=== PATIENT | male | born 1950 | race Caucasian/White ===

== ENCOUNTER 2018-04-22 01:19 | Inpatient (IN) | payer MEDICARE, OTHER ==
[2018-04-22] MEDS ORDERED: ACETAMINOPHEN IV (For NPO) 1,000 MG in EMPTY BAG 1 BAG IVPB STA (01:45)
[2018-04-22] MEDS ORDERED: VANCOMYCIN 2,000 MG in SODIUM CHLORIDE 0.9% 250 ML IVPB STA (01:55)
--- NOTE | 2018-04-22 02:01 | ED ---
General Adult HPI - General Chief complaint: Altered Mental Status Stated complaint: Altered Mental Status Source: patient, family, EMS Mode of arrival: EMS Limitations: altered mental status - History of Present Illness Initial comments: Dictation was produced using [employer] dictation software. please excuse any grammatical, word or spelling errors. Chief Complaint: 67-year-old male past medical history of asthma, COPD , diabetes presents with worsening bilateral lower extremity pain and constitutional symptoms. History of Present Illness: She is 67-year-old male who was recently admitted for lower extremity cellulitis. He was on several days of vancomycin. Patient was at home today when he felt like his pain was getting worse. He notes that erythema of his bilateral feet have been also been getting worse. He localizes pain to bilateral feet. His symptoms on his left lower extremity is worse than his right. Patient states that he was admitted for cellulitis on vancomycin. He was admitted for 10 days and felt like his symptoms improved with the medication. Patient presents today with his . She reports that patient had brief episode of confusion and bizarre behavior that was short-lived. Patient denies any confusion at this time. states he is currently not confused. She states that he's been feeling cold however has not spiked any fevers. The ROS documented in this emergency department record has been reviewed and confirmed by me. Those systems with pertinent positive or negative responses have been documented in the HPI. All other systems are other negative and/or noncontributory. - Related Data Allergies Allergy/AdvReac Type Severity Reaction Status Date / Time antibiotics-unknown Allergy Rash/Hives Uncoded 04/22/18 01:28 Review of Systems ROS Statement: Those systems with pertinent positive or pertinent negative responses have been documented in the HPI. ROS Other: All systems not noted in ROS Statement are negative. Past Medical History Past Medical History: Asthma, COPD, Diabetes Mellitus, Hyperlipidemia, Hypertension, Thyroid Disorder History of Any Multi-Drug Resistant Organisms: None Reported Past Surgical History: Appendectomy, Orthopedic Surgery, Tonsillectomy Past Psychological History: No Psychological Hx Reported Smoking Status: Former smoker Past Alcohol Use History: None Reported Past Drug Use History: None Reported General Exam - General Exam Comments Initial Comments: PHYSICAL EXAM: General Impression: Alert and oriented x3, not in acute distress HEENT: Normocephalic atraumatic, extra-ocular movements intact, pupils equal and reactive to light bilaterally, mucous membranes moist. Cardiovascular: Heart regular rate and rhythm, S1&S2 audible, no murmurs, rubs or gallops Chest: Lungs clear to auscultation bilaterally, no rhonchi, no wheeze, no rales Abdomen: Bowel sounds present, abdomen soft, non-tender, non-distended, no organomegaly Musculoskeletal: Pulses present and equal in all extremities, no peripheral edema Motor: Power 5/5 bilaterally, no focal deficits noted Neurological: CN II-XII grossly intact, no focal motor or sensory deficits noted Skin: Intact with no visualized rashes Psych: Normal affect and mood Limitations: altered mental status Course Vital Signs 04/22/18 04/22/18 04/22/18 01:21 02:53 03:46 Temperature 99.3 F Pulse Rate 108 H 98 101 H Respiratory 19 19 20 Rate Blood Pressure 142/69 134/66 125/74 O2 Sat by Pulse 94 L 96 95 Oximetry Medical Decision Making - Medical Decision Making ED course: 67-year-old male multiple comorbidities presents with bilateral extremity symptoms. Clinical presentation is consistent with bilateral lower extremity cellulitis. Vital signs upon arrival shows temperature 99.3, heart rate 108.Laboratory evaluation obtained. No leukocytosis. CBC is unremarkable. Cardiac panel is negative. Cumbersome metabolic panel shows mild hyponatremia of 134. BUN is 21. Glucose is 103. Rest of labs are otherwise unremarkable. Computed tomography scan of the head was obtained showing no acute processes. Foot x-ray does not show any gas in the soft tissue. Radiology read showed MP joint osteoarthritis. No signs of osteomyelitis. Chest x-ray shows atelectasis. EKGs benign. Click or presentation is insistent with the lateral lower extremity cellulitis. At this point erythema surrounds more than just the MP joint. There is no clinical suspicion for gout given clinical presentation. Patient started on vancomycin. Pending urine studies. Blood cultures obtained. Patient be admitted. Patient not having any neck stiffness. Kernig's and Brudzinski's negative. No clinical suspicion for [employer] infection. While in the emergency department patient did have a couple episodes of bizarre speech I believe this dictation secondary to lower extremity cellulitis. EKG interpretation: Ventricular rate 108, sinus tachycardia, QRS 92, QTc 447. No NC prolongation, no QTC prolongation, no ST or T-wave changes noted. . Overall, this EKG is unremarkable - Lab Data Result diagrams: 04/22/18 02:25 04/22/18 02:25 Lab Results 04/22/18 04/22/18 04/22/18 Range/Units 02:25 02:25 02:25 WBC 10.2 (3.8-10.6) k/uL RBC 4.62 (4.30-5.90) m/uL Hgb 14.6 (13.0-17.5) gm/dL Hct 44.7 (39.0-53.0) % MCV 96.6 (80.0-100.0) fL MCH 31.6 (25.0-35.0) pg MCHC 32.7 (31.0-37.0) g/dL RDW 15.3 (11.5-15.5) % Plt Count 213 (150-450) k/uL Neutrophils % 77 % Lymphocytes % 11 % Monocytes % 8 % Eosinophils % 1 % Basophils % 0 % Neutrophils # 7.8 H (1.3-7.7) k/uL Lymphocytes # 1.1 (1.0-4.8) k/uL Monocytes # 0.8 (0-1.0) k/uL Eosinophils # 0.1 (0-0.7) k/uL Basophils # 0.0 (0-0.2) k/uL PT (9.0-12.0) sec INR (<1.2) APTT (22.0-30.0) sec Sodium 134 L (137-145) mmol/L Potassium 4.1 (3.5-5.1) mmol/L Chloride 96 L (98-107) mmol/L Carbon Dioxide 28 (22-30) mmol/L Anion Gap 10 mmol/L BUN 21 H (9-20) mg/dL Creatinine 1.00 (0.66-1.25) mg/dL Est GFR (CKD-EPI)AfAm 90 (>60 ml/min/1.73 sqM) Est GFR (CKD-EPI)NonAf 78 (>60 ml/min/1.73 sqM) Glucose 103 H (74-99) mg/dL Plasma Lactic Acid Jack 1.0 (0.7-2.0) mmol/L Calcium 8.5 (8.4-10.2) mg/dL Total Bilirubin 1.0 (0.2-1.3) mg/dL AST 15 L (17-59) U/L ALT 18 L (21-72) U/L Alkaline Phosphatase 80 (38-126) U/L Total Protein 5.9 L (6.3-8.2) g/dL Albumin 3.4 L (3.5-5.0) g/dL 04/22/18 Range/Units 02:25 WBC (3.8-10.6) k/uL RBC (4.30-5.90) m/uL Hgb (13.0-17.5) gm/dL Hct (39.0-53.0) % MCV (80.0-100.0) fL MCH (25.0-35.0) pg MCHC (31.0-37.0) g/dL RDW (11.5-15.5) % Plt Count (150-450) k/uL Neutrophils % % Lymphocytes % % Monocytes % % Eosinophils % % Basophils % % Neutrophils # (1.3-7.7) k/uL Lymphocytes # (1.0-4.8) k/uL Monocytes # (0-1.0) k/uL Eosinophils # (0-0.7) k/uL Basophils # (0-0.2) k/uL PT 10.1 (9.0-12.0) sec INR 1.0 (<1.2) APTT 24.6 (22.0-30.0) sec Sodium (137-145) mmol/L Potassium (3.5-5.1) mmol/L Chloride (98-107) mmol/L Carbon Dioxide (22-30) mmol/L Anion Gap mmol/L BUN (9-20) mg/dL Creatinine (0.66-1.25) mg/dL Est GFR (CKD-EPI)AfAm (>60 ml/min/1.73 sqM) Est GFR (CKD-EPI)NonAf (>60 ml/min/1.73 sqM) Glucose (74-99) mg/dL Plasma Lactic Acid Jack (0.7-2.0) mmol/L Calcium (8.4-10.2) mg/dL Total Bilirubin (0.2-1.3) mg/dL AST (17-59) U/L ALT (21-72) U/L Alkaline Phosphatase (38-126) U/L Total Protein (6.3-8.2) g/dL Albumin (3.5-5.0) g/dL Disposition Clinical Impression: Cellulitis Disposition: ADMITTED IP TO THIS HOSP Condition: Fair Referrals: Magali Almaraz MD [Primary Care Provider] - 1-2 days Decision Time: 05:03
[2018-04-22 02:37] LABS: Basophils % (A) 0 %; Eosinophils # (A) 0.1 k/uL (0-0.7); Eosinophils % (A) 1 %; HCT 44.7 % (39.0-53.0); HGB 14.6 gm/dL (13.0-17.5); Lymphocytes # (A) 1.1 k/uL (1.0-4.8); Lymphocytes % (A) 11 %; MCH 31.6 pg (25.0-35.0); MCHC 32.7 g/dL (31.0-37.0); MCV 96.6 fL (80.0-100.0); Mean Platelet Volume 7.1; Monocytes # (A) 0.8 k/uL (0-1.0); Monocytes % (A) 8 %; Neutrophils # (A) 7.8 k/uL (1.3-7.7); Neutrophils % (A) 77 %; Platelet Count 213 k/uL (150-450); RBC 4.62 m/uL (4.30-5.90); RDW 15.3 % (11.5-15.5); WBC 10.2 k/uL (3.8-10.6)
[2018-04-22] MEDS: SODIUM CHLORIDE 0.9% 500 ML 500 ML IV SCH ×2 (02:52→03:44)
[2018-04-22 02:53] LABS: Partial Thromboplastin Time 24.6 sec (22.0-30.0); Prothrombin Time 10.1 sec (9.0-12.0)
--- NOTE | 2018-04-22 03:29 | XR ---
EXAMINATION TYPE: XR chest 2V DATE OF EXAM: 04/22/2018 COMPARISON: NONE HISTORY: Fever TECHNIQUE: Frontal and lateral views of the chest are obtained. FINDINGS: Heart and mediastinum are normal. Lungs are clear of consolidation. There is suboptimal in spiration. There is elevated right diaphragm. There are chest leads. There is no heart failure. IMPRESSION: Poor inspiration. No heart failure or pulmonary consolidation. Subsegmental atelectasis at the lung bases.
--- NOTE | 2018-04-22 03:32 | XR ---
EXAMINATION TYPE: XR foot complete bilateral DATE OF EXAM: 04/22/2018 COMPARISON: NONE HISTORY: Bilateral foot pain and cellulitis TECHNIQUE: 3 views each foot FINDINGS: There is large left side plantar and Achilles calcaneal spur formation. There is fragmentat ion of the calcification at the left Achilles calcaneal spur. There is narrowing and spurring at the left first MP joint. There is similar narrowing and spurring at the first MP joint right foot. There is large Achilles dasia caneal spur of the right foot. The metatarsals are intact. There are is no subluxation. There is eros ion at the DIP joint of the second toe of the right foot. IMPRESSION: Significant Achilles calcaneal spur formation. Bilateral first MP joint osteoarthritis. T here are some cystic changes at the right first MP joint. Gouty arthritis should be considered at the first MP joint and also in the DIP joint of the second toe right foot. I do not see evidence of oste omyelitis.
--- NOTE | 2018-04-22 03:33 | CT ---
EXAMINATION TYPE: CT brain wo con DATE OF EXAM: 04/22/2018 COMPARISON: None HISTORY: AMS CT DLP: 1103.30 mGycm Automated exposure control for dose reduction was used. FINDINGS: There is some cerebral cortical atrophy. There is no mass effect nor midline shift. There is no sign of intracranial hemorrhage. The calvarium is intact. IMPRESSION: CEREBRAL ATROPHY. NO ACUTE INTRACRANIAL ABNORMALITY.
[2018-04-22 03:39] LABS: Albumin 3.4 g/dL (3.5-5.0); Calcium 8.5 mg/dL (8.4-10.2); Potassium 4.1 mmol/L (3.5-5.1); Total Protein 5.9 g/dL (6.3-8.2)
[2018-04-22] MEDS ORDERED: NALOXONE 0.4 MG/ML 1 ML VIAL IV PRN (04:59)
[2018-04-22 05:12] LABS: Appearance,Urine Clear (Clear); Bilirubin,Urine Negative (Negative); Blood,Urine Negative (Negative); Color,Urine Yellow; Glucose,Urine (UA) Negative (Negative); Ketones,Urine 1+ (Negative); Leukocyte Esterase,Urine Negative (Negative); Nitrite,Urine Negative (Negative); Protein,Urine Negative (Negative); Specific Gravity,Urine 1.011 (1.001-1.035); Urobilinogen,Urine <2.0 mg/dL (<2.0)
[2018-04-22 07:36] LABS: Glucose,Whole Blood 104 mg/dL (75-99)
[2018-04-22 08:09] VITALS: BMI 28.8
[2018-04-22] MEDS ORDERED: ALPRAZolam 1 MG TAB PO PRN (11:10)
[2018-04-22] MEDS ORDERED: LISINOPRIL-HCTZ 20-12.5 MG 1 EACH TAB PO SCH (11:30)
[2018-04-22 11:41] LABS: Glucose,Whole Blood 112 mg/dL (75-99)
[2018-04-22] MEDS ORDERED: Simvastatin [Zocor] 20 MG PO SCH (11:45)
[2018-04-22] MEDS ORDERED: VANCOMYCIN IV PER PHARMACY 1 EACH MISC MISCELLANE PRN (12:37)
[2018-04-22] MEDS ORDERED: VANCOMYCIN 1,750 MG in SODIUM CHLORIDE 0.9% 250 ML IVPB SCH (13:00)
[2018-04-22] MEDS: FUROSEMIDE 40 MG TAB PO SCH (13:37)
[2018-04-22] MEDS: LISINOPRIL-HCTZ 10-12.5 MG 1 EACH TAB PO SCH (13:37)
[2018-04-22] MEDS: metFORMIN 500 MG TAB PO SCH ×2 (13:37→21:46)
[2018-04-22] MEDS: VERAPAMIL SR 240 MG TABLET.ER PO SCH (13:38)
[2018-04-22] MEDS: LEVOTHYROXINE SODIUM 200 MCG PO SCH (13:40)
[2018-04-22] MEDS: ceFAZolin IN SWFI 2 GM/20 ML SYRINGE IVP SCH ×2 (13:40→21:53)
[2018-04-22] MEDS: INSULIN ASPART 100 UNIT/ML 1 ML 10 ML VIAL SQ SCH ×3 (13:40→21:50)
[2018-04-22] MEDS ORDERED: VANCOMYCIN 1,750 MG in SODIUM CHLORIDE 0.9% 500 ML 500 ML IVPB SCH (14:00)
[2018-04-22 15:06] LABS: Uric Acid 4.4 mg/dL (3.5-8.5)
[2018-04-22 15:19] LABS: C Reactive Protein 164.6 mg/L (<10.0)
[2018-04-22] MEDS: methylPREDNISolone SOD SUCCI 125 MG/2 ML VIAL IV SCH ×3 (16:21→23:28)
[2018-04-22] MEDS: COLCHICINE 0.6 MG EACH PO SCH ×2 (16:21→21:46)
[2018-04-22 16:57] LABS: Glucose,Whole Blood 106 mg/dL (75-99)
[2018-04-22] MEDS: HYDROmorphone 4 MG TABLET PO PRN ×2 (17:32→22:23)
--- NOTE | 2018-04-22 17:45 | HP ---
HISTORY AND PHYSICAL CHIEF COMPLAINTS: Pain and swelling of the right foot. HISTORY OF PRESENT ILLNESS: This 67-year-old gentleman with a past medical history of asthma, COPD, diabetes mellitus, hypertension, hyperlipidemia, hypothyroidism, hernia repair, being followed by Dr. Almaraz in the outpatient setting, recently had right leg cellulitis after falling in a ditch. The patient improved significantly, but patient had some kidney problems subsequently secondary to Bactrim. But currently the patient is noticing increased pain and swelling of the right leg and the patient also tripped on the left foot and also injured the left third toe. She was admitted for further evaluation and treatment. Broad-spectrum antibiotics were initiated. There is no history of fever, rigors or chills. No history of headache, loss of consciousness, seizures. PAST MEDICAL HISTORY: 1. Asthma. 2. COPD. 3. Diabetes mellitus. 4. Hypertension. 5. Hyperlipidemia. 6. Hypothyroidism. 7. Gout. 8. Recent cellulitis, as mentioned earlier. 9. Renal failure. MEDICATIONS: 1. Glucophage 500 mg p.o. b.i.d. 2. Zocor 20 mg at bedtime. 3. Singulair 10 mg p.o. daily. 4. Zestoretic 10/12.5 mg p.o. daily. 5. Synthroid 200 mcg p.o. daily. 6. Dilaudid 4 mg p.o. q.4 p.r.n. 7. Lasix 40 mg p.o. daily. 8. Pepcid 40 mg p.o. daily. 9. Cetirizine 10 mg p.o. daily. 10.Zyloprim 300 mg p.o. b.i.d. 11.Xanax 1 mg p.o. t.i.d. p.r.n. 12.Verapamil ER 240 mg p.o. daily. ALLERGIES: ANTIBIOTICS. FAMILY HISTORY: History of CHF, myocardial infarction, multiple DVTs. SOCIAL HISTORY: Previous history of smoking. No current smoking or alcohol intake. REVIEW OF SYSTEMS: ENT: No diminished hearing. No diminished vision. CARDIOVASCULAR SYSTEM: No angina, palpitations. RESPIRATORY SYSTEM: No cough, hemoptysis. GI: No nausea, vomiting. : No dysuria or retention. NERVOUS SYSTEM: No numbness, weakness. ALLERGY/IMMUNOLOGY: No asthma, hayfever. MUSCULOSKELETAL: As mentioned earlier. HEMATOLOGY/ONCOLOGY: As mentioned earlier. ENDOCRINE: As mentioned earlier. CONSTITUTIONAL: As mentioned earlier. DERMATOLOGY: As mentioned earlier. RHEUMATOLOGY: As mentioned earlier. PSYCHIATRY: Negative. PHYSICAL EXAMINATION: Patient is alert, oriented x3. Pulse is 95, blood pressure 130/66, respirations 16, temperature 99.2, pulse ox 97% on room air. HEENT: Conjunctivae normal. Oral mucosa moist. NECK: No jugular venous distention. No carotid bruit. No lymph node enlargement. CARDIOVASCULAR SYSTEM: S1, S2 muffled. RESPIRATORY SYSTEM: Breath sounds diminished at the bases. No rhonchi. No crackles. ABDOMEN: Soft, non-tender. No mass palpable. LEGS: Right leg tenderness and swelling in the ankle and metatarsophalangeal joints present. Otherwise, evidence of hematoma of the left third toe also present. Gouty tophi also present on the left second toe. NERVOUS SYSTEM: Higher functions as mentioned earlier. Moves all 4 limbs. No focal motor or sensory deficit. LYMPHATICS: No lymph node palpable in neck, axillae or groin. SKIN: No ulcer, rash, bleeding. LABS: CBC within normal limits. INR is 1. Sodium 134, potassium 4, glucose 104. AST and ALT are low. UA noted. ASSESSMENT: 1. Pain and swelling of the right leg, possible acute gout. 2. Rule out acute cellulitis. 3. Hyponatremia. 4. Injury to the left third toe. 5. History of chronic obstructive pulmonary disease. 6. Asthma. 7. History of recent right leg cellulitis. 8. History of recent renal failure, possibly drug-induced. 9. Diabetes mellitus 10.Hypertension. 11.Hyperlipidemia. 12.Hypothyroidism. 13.History of degenerative joint disease. 14.History of hernia repair. 15.Bilateral carpal tunnel repair. 16.Remote history of nicotine dependence. 17.FULL CODE. RECOMMENDATIONS AND DISCUSSION: In this 67-year-old gentleman who presented with multiple complex medical issues , at this time I recommend to continue current medications, continue with symptomatic treatment. We will initiate broad-spectrum IV antibiotics, obtain cultures. Will order ESR, CRP, as well as uric acid initially. Start colchicine and a trial of steroids empirically. Otherwise, continue to monitor. Prognosis guarded. Monitor blood sugars closely. Repeat labs. Resume the home medications. Repeat labs. Further recommendations to follow. A copy of this dictation is being forwarded to Dr. Almaraz, who is the primary physician. Prognosis is guarded. The patient understands and agrees. MMODL / IJN: [id number] / MTDD
[2018-04-22 17:49] LABS: Hemoglobin A1C 5.6 % (4.0-6.0)
[2018-04-22] MEDS ORDERED: diphenhydrAMINE 50 MG CAP PO PRN (19:59)
[2018-04-22 21:04] LABS: Glucose,Whole Blood 147 mg/dL (75-99)
[2018-04-22] MEDS: ALLOPURINOL 300 MG TAB PO SCH (21:46)
[2018-04-22] MEDS: Simvastatin [Zocor] 20 MG PO SCH (22:09)
[2018-04-23] MEDS: ceFAZolin IN SWFI 2 GM/20 ML SYRINGE IVP SCH ×3 (05:03→21:33)
[2018-04-23] MEDS: methylPREDNISolone SOD SUCCI 125 MG/2 ML VIAL IV SCH ×2 (05:06→13:06)
[2018-04-23] MEDS ORDERED: ARTIFICIAL TEARS-HYPROMELLOSE DROPS 15 ML BTL BOTH EYES PRN (05:11)
[2018-04-23] MEDS: LEVOTHYROXINE SODIUM 200 MCG PO SCH (05:12)
[2018-04-23 08:14] LABS: Glucose,Whole Blood 174 mg/dL (75-99)
[2018-04-23] MEDS: COLCHICINE 0.6 MG EACH PO SCH ×2 (08:18→21:34)
[2018-04-23] MEDS: metFORMIN 500 MG TAB PO SCH ×2 (08:19→21:34)
[2018-04-23] MEDS: LISINOPRIL-HCTZ 10-12.5 MG 1 EACH TAB PO SCH (08:19)
[2018-04-23] MEDS: LORATADINE 10 MG TAB PO SCH (08:19)
[2018-04-23] MEDS: FAMOTIDINE 20 MG TAB PO SCH (08:19)
[2018-04-23] MEDS: VERAPAMIL SR 240 MG TABLET.ER PO SCH (08:19)
[2018-04-23] MEDS: MONTELUKAST 10 MG TAB PO SCH (08:19)
[2018-04-23] MEDS: FUROSEMIDE 40 MG TAB PO SCH (08:19)
[2018-04-23] MEDS: ALLOPURINOL 300 MG TAB PO SCH ×2 (08:20→21:33)
[2018-04-23] MEDS: INSULIN ASPART 100 UNIT/ML 1 ML 10 ML VIAL SQ SCH ×4 (08:29→21:33)
[2018-04-23] MEDS ORDERED: CETIRIZINE HCL 10 MG PO SCH (09:00)
[2018-04-23 09:58] LABS: Basophils % (A) 0 %; Eosinophils % (A) 0 %; HCT 43.2 % (39.0-53.0); HGB 14.6 gm/dL (13.0-17.5); Lymphocytes # (A) 0.5 k/uL (1.0-4.8); Lymphocytes % (A) 7 %; MCH 32.7 pg (25.0-35.0); MCHC 33.7 g/dL (31.0-37.0); Mean Platelet Volume 7.1; Monocytes # (A) 0.2 k/uL (0-1.0); Monocytes % (A) 3 %; Neutrophils # (A) 6.1 k/uL (1.3-7.7); Neutrophils % (A) 89 %; Platelet Count 227 k/uL (150-450); RBC 4.45 m/uL (4.30-5.90); RDW 15.4 % (11.5-15.5); WBC 6.9 k/uL (3.8-10.6)
[2018-04-23 10:03] LABS: Anion Gap 12 mmol/L; Blood Urea Nitrogen 19 mg/dL (9-20); Calcium 9.1 mg/dL (8.4-10.2); Carbon Dioxide 26 mmol/L (22-30); Chloride 100 mmol/L (98-107); Glucose 201 mg/dL (74-99); Potassium 4.3 mmol/L (3.5-5.1); Sodium 138 mmol/L (137-145)
[2018-04-23 12:48] LABS: Glucose,Whole Blood 121 mg/dL (75-99)
[2018-04-23] MEDS ORDERED: ALPRAZolam 0.5 MG TAB PO PRN (16:03)
[2018-04-23] MEDS: methylPREDNISolone SOD SUCCI 40 MG/ML 1 ML VIAL IV SCH ×2 (16:51→23:34)
[2018-04-23 17:35] LABS: Glucose,Whole Blood 168 mg/dL (75-99)
--- NOTE | 2018-04-23 20:28 | PN ---
PROGRESS NOTE DATE OF SERVICE: 04/23/2018. INTERVAL HISTORY: This 67-year-old gentleman admitted with pain and swelling of the right foot, possibly also had acute gout. The patient is started on IV steroids. The patient still has right leg swelling and erythema slightly better compared to yesterday. The patient also had some features of delirium also. The patient is on broad-spectrum IV antibiotics. Cultures are negative. His uric acid is normal. The CT scan of the brain was also done which showed cerebral atrophy. PAST MEDICAL HISTORY: Reviewed. REVIEW OF SYSTEMS: Cardio system: No angina or palpitations. RESPIRATORY: No cough or hemoptysis. GI as mentioned earlier. no dysuria. Nervous system/musculoskeletal as mentioned earlier. CURRENT MEDICATIONS ARE: Reviewed and include: 1. Zyloprim 300 mg b.i.d. 2. Xanax 0.5 t.i.d. p.r.n. 4. Kefzol 2 g IV q.8 hours. 6. Pepcid 40 mg. 7. Lasix 40 mg p.o. daily. 8. Zestoretic 10/12.5 mg daily. 9. Dilaudid 4 mg q.4h p.r.n. 10.NovoLog. 11.Claritin. 13.Solu-Medrol 40 IV q.8h. 14.Singular 10 mg q.h.s. 15.Narcan p.r.n. 16.Simvastatin. 17.Risperdal 0.25 mg. PHYSICAL EXAM: Patient is alert, oriented x3. Blood pressure 128/77, respiration 16, temperature 98.4, pulse ox 94% on room air. HEENT: Conjunctivae normal. Oral mucosa moist. Neck is no jugular venous distention. No carotid bruit. No lymph node enlargement. Cardiovascular: S1, S2 muffled. Respirations: The breath sounds diminished in the bases. A few scattered rhonchi. No crackles. ABDOMEN: Soft, nontender. No mass palpable. Legs: Right leg edema present. Significant pain in the ankle and left ankle and distal joints also present. Nervous system: No focal deficits. LABS: CBC within normal limits and glucose 201. ASSESSMENT: 1. Pain and swelling of the right leg and right foot and possible acute gout. 2. Possible acute cellulitis. 3. Hyponatremia. 4. Injury to the left third toe. 5. History of chronic obstructive pulmonary disease. 6. Acute delirium possibly medication induced. 7. Asthma. 8. History of recent right leg cellulitis. 9. History of recent renal failure possibly drug induced. 10.Diabetes mellitus type 2. 11.Hypertension. 12.Hyperlipidemia. 13.Hypothyroidism. 14.History of degenerative joint disease. 15.History of hernia repair. 16.Bilateral carpal tunnel repair. 17.Remote history of nicotine dependence. 18.FULL CODE. RECOMMENDATIONS AND DISCUSSION: Recommend to continue current medications, management and symptomatic treatment. We will taper the steroids. Continue the cultures and continue the rest of medications. Increase ambulation. I would also recommend. Continue rest of medications. See orders for details. Prognosis guarded because of multiple complex medical issues. Further recommendations to follow. MMODL / IJN: [id number] / SAURABH
[2018-04-23] MEDS ORDERED: risperiDONE 0.25 MG TAB PO SCH (21:00)
[2018-04-23 21:26] LABS: Glucose,Whole Blood 162 mg/dL (75-99)
[2018-04-23] MEDS: Simvastatin [Zocor] 20 MG PO SCH (21:36)
[2018-04-24] MEDS: LEVOTHYROXINE SODIUM 200 MCG PO SCH (05:28)
[2018-04-24] MEDS: ceFAZolin IN SWFI 2 GM/20 ML SYRINGE IVP SCH ×2 (05:29→12:31)
[2018-04-24 07:31] LABS: Glucose,Whole Blood 155 mg/dL (75-99)
[2018-04-24 07:56] VITALS: BP 133/86; RESP 17; TEMP 97.5
[2018-04-24] MEDS: COLCHICINE 0.6 MG EACH PO SCH (08:12)
[2018-04-24] MEDS: methylPREDNISolone SOD SUCCI 40 MG/ML 1 ML VIAL IV SCH (08:12)
[2018-04-24] MEDS: MONTELUKAST 10 MG TAB PO SCH (08:12)
[2018-04-24] MEDS: LISINOPRIL-HCTZ 10-12.5 MG 1 EACH TAB PO SCH (08:13)
[2018-04-24] MEDS: INSULIN ASPART 100 UNIT/ML 1 ML 10 ML VIAL SQ SCH ×2 (08:13→12:31)
[2018-04-24] MEDS: LORATADINE 10 MG TAB PO SCH (08:13)
[2018-04-24] MEDS: metFORMIN 500 MG TAB PO SCH (08:13)
[2018-04-24] MEDS: FUROSEMIDE 40 MG TAB PO SCH (08:13)
[2018-04-24] MEDS: FAMOTIDINE 20 MG TAB PO SCH (08:13)
[2018-04-24] MEDS: ALLOPURINOL 300 MG TAB PO SCH (08:13)
[2018-04-24 09:14] VITALS: PULSE 82
[2018-04-24 09:56] LABS: Basophils % (A) 0 %; Eosinophils % (A) 0 %; HCT 46.7 % (39.0-53.0); HGB 15.5 gm/dL (13.0-17.5); Lymphocytes # (A) 0.5 k/uL (1.0-4.8); Lymphocytes % (A) 5 %; MCH 31.7 pg (25.0-35.0); MCHC 33.2 g/dL (31.0-37.0); MCV 95.5 fL (80.0-100.0); Mean Platelet Volume 7.2; Monocytes # (A) 0.5 k/uL (0-1.0); Monocytes % (A) 5 %; Neutrophils # (A) 9.5 k/uL (1.3-7.7); Neutrophils % (A) 90 %; Platelet Count 292 k/uL (150-450); RBC 4.89 m/uL (4.30-5.90); RDW 15.5 % (11.5-15.5); WBC 10.6 k/uL (3.8-10.6)
[2018-04-24 10:36] LABS: Anion Gap 9 mmol/L; Blood Urea Nitrogen 29 mg/dL (9-20); Calcium 9.4 mg/dL (8.4-10.2); Carbon Dioxide 31 mmol/L (22-30); Chloride 101 mmol/L (98-107); Glucose 177 mg/dL (74-99); Potassium 3.9 mmol/L (3.5-5.1); Sodium 141 mmol/L (137-145)
[2018-04-24 12:30] LABS: Glucose,Whole Blood 127 mg/dL (75-99)
[2018-04-24] MEDS: VERAPAMIL SR 240 MG TABLET.ER PO SCH (12:30)
--- NOTE | 2018-04-24 17:35 | DS ---
DISCHARGE SUMMARY DATE OF SERVICE: 04/24/2018 FINAL DIAGNOSES: 1. Pain and swelling of the right leg and right foot. Possible acute gout. 2. Possible acute cellulitis. 3. Hyponatremia. 4. Injury to the left third toe. 5. History of chronic obstructive pulmonary disease. 6. Acute delirium, possibly medication induced. 7. Asthma. 8. History of recent right leg cellulitis. 9. History of recent renal failure with possible drug abuse. 10.Diabetes type 2. 11.Hypertension. 12.Hyperlipidemia. 13.Hypothyroidism. 14.History of degenerative joint disease. 15.History of hernia repair. 16.Bilateral carpal tunnel repair. 17.Remote history of nicotine dependence. 18.FULL CODE. DISCHARGE DISPOSITION: The patient is being discharged in stable condition with guarded prognosis. HISTORY OF PRESENT ILLNESS: This 67-year-old gentleman with a past medical history of multiple medical problems, was admitted with significant swelling and pain of the right leg with ankle and metatarsophalangeal joint swelling, possible acute gout, treated symptomatically , improved significantly. Serum uric acid was normal. The patient also has suspected cellulitis treated with antibiotics. Patient also injured the left third toe also. PHYSICAL EXAMINATION: On exam vitals are stable. Cardiovascular: S1, S2. Abdomen soft. Nervous system: No focal deficits. Right leg minimal swelling present. DISCHARGE ADVICE AND MEDICATIONS: 1. Diet is cardiac diet. 2. Activity limited until followup. 3. Follow up with Dr. Almaraz in 2-3 days. MEDICATIONS ARE: 1. Allopurinol 300 mg p.o. daily. 2. Xanax 1 mg t.i.d. p.r.n. 3. Cetirizine 10 mg p.o. daily. 4. Pepcid 40 mg p.o. daily. 5. Lasix 40 mg b.i.d. 6. Dilaudid 4 mg q.4h p.r.n. 7. Synthroid 200 mcg p.o. daily. 8. Lisinopril hydrochlorothiazide 10/12.5 mg p.o. 9. Glucophage 500 mg. 10.Singular 10 mg daily. 11.Zocor 20 mg p.o. daily. 12.Verapamil 240 mg daily. 13.Artificial tears. 14.Colchicine 0.6 mg p.o. b.i.d. for 2 days and then 0.6 daily. 15.Multivitamins 1 p.o. daily. 16.Risperdal 0.125 mg q.h.s. Once again the patient is being discharged in stable condition with guarded prognosis. MMDONL / MARCUSN: [id number] / MTDD
--- NOTE | 2018-05-05 21:43 | DS ---
DISCHARGE SUMMARY DISCHARGE ADDENDUM: Please note this patient had a past medical history of recent renal failure possibly drug induced. There is no history of drug abuse. MMODL / IJN: [id number] /
== END 2018-04-24 14:51 | disposition home or self-care (01) | DRG 554 ==
LOC: EC 01:19 → 4MS4W 04:59
PROVIDERS: ADMIT Hospitalist; ATTEND Hospitalist
DX: M10.9 Gout, unspecified (principal); L03.115 Cellulitis of right lower limb; E87.1 Hypo-osmolality and hyponatremia; J98.11 Atelectasis; L03.116 Cellulitis of left lower limb; F19.921 Other psychoactive substance use, unspecified with intoxication with delirium; E03.9 Hypothyroidism, unspecified; E11.9 Type 2 diabetes mellitus without complications; E78.5 Hyperlipidemia, unspecified; J44.9 Chronic obstructive pulmonary disease, unspecified; M19.90 Unspecified osteoarthritis, unspecified site; T37.0X5A Adverse effect of sulfonamides, initial encounter; Z82.49 Family history of ischemic heart disease and other diseases of the circulatory system; Z87.891 Personal history of nicotine dependence; Z79.890 Hormone replacement therapy; Z79.899 Other long term (current) drug therapy; T14.90XA Injury, unspecified, initial encounter; W18.40XA Slipping, tripping and stumbling without falling, unspecified, initial encounter; Z91.81 History of falling; S99.922A Unspecified injury of left foot, initial encounter; Z79.84 Long term (current) use of oral hypoglycemic drugs; I10 Essential (primary) hypertension
CPT/HCPCS: 36415; 70450; 71046; 80048; 80053; 81003; 83036; 83605; 84550; 85025; 85610; 85652; 85730; 86140; 87040; 87086; 93005; 96365; 96366; 96375; 99285

== ENCOUNTER 2020-03-17 07:18 | Day surgery (SDC) | payer MEDICARE ==
[2020-03-12 09:38] VITALS: BMI 27.0
[~2020-03-17 07:18] MED LIST: LACTATED RINGERS 1,000 ML IV SCH
[2020-03-17 08:01] LABS: Glucose,Whole Blood 84 mg/dL (75-99)
[2020-03-17 08:04] VITALS: TEMP 98.1
[2020-03-17] MEDS ORDERED: fentaNYL (PF) 50 MCG/ML 2 ML AMP ONE (08:30)
[2020-03-17] MEDS ORDERED: LIDOCAINE 1% INJ 10MG/ML (20 ML MDV) ONE (08:30)
[2020-03-17] MEDS ORDERED: PROPOFOL 10 MG/ML 20 ML VIAL IV ONE (08:30)
--- NOTE | 2020-03-17 09:02 | P.PCN ---
Date of Procedure: 03/17/20 Description of Procedure: BRIEF HISTORY: Patient is a 69-year-old male presenting for outpatient colonoscopy for evaluation of change in bowel habits. Patient reports worsening constipation recently. He has had 3 colonoscopies in the past stating that his last was 10 years ago when normal. No family history of colon cancer. PROCEDURE PERFORMED: Colonoscopy. PREOPERATIVE DIAGNOSIS: Change in bowel habits, patient reports last colonoscopy 10 years ago and normal. ESTIMATED BLOOD LOSS: Minimal. IV sedation per Anesthesia. PROCEDURE: After informed consent was obtained, the patient, was brought into the endoscopy unit. IV sedation was administered by Anesthesia under continuous monitoring. Digital rectal examination was normal. Initially the Olympus CF-190 flexible video colonoscope was then inserted in the rectum, gradually advanced into the cecum without any difficulty. Careful examination was performed as the scope was gradually being withdrawn. Ileocecal valve and the appendiceal orifice were visualized and appeared normal. Prep was poor with liquid stool with solid fibrous components throughout the entire exam and colonoscopy prohibited complete visualization of the mucosa. Mucosa of the cecum, ascending colon, transverse colon, descending colon, sigmoid colon, and rectum which was visualized and appeared normal, however complete visualization of the mucosa inhibited by poor prep. Retroflexion was performed in the rectum and no lesions were seen, low-grade internal hemorrhoids. The patient tolerated the procedure well. IMPRESSION: Poor prep. Normal-appearing colon from rectum to cecum, however complete visualization of the mucosa prohibited by poor prep. Internal hemorrhoids. RECOMMENDATIONS: Findings of this examination were discussed with the patient and his . Okay to resume diet. Okay to resume medications. Would recommend MiraLAX daily for bowel regimen. Would recommend repeat colonoscopy in one year for screening purposes due to poor prep.
[2020-03-17 09:04] VITALS: RESP 16
[2020-03-17 09:19] VITALS: BP 127/81; PULSE 62
== END 2020-03-17 09:32 | disposition home or self-care (01) ==
LOC: ORWHC2ENDO 07:18
PROVIDERS: ATTEND Internal Medicine
DX: K64.8 Other hemorrhoids (principal); I10 Essential (primary) hypertension; E78.5 Hyperlipidemia, unspecified; J44.9 Chronic obstructive pulmonary disease, unspecified; E11.9 Type 2 diabetes mellitus without complications; E07.9 Disorder of thyroid, unspecified; F41.9 Anxiety disorder, unspecified; K21.9 Gastro-esophageal reflux disease without esophagitis; M10.9 Gout, unspecified; Z87.891 Personal history of nicotine dependence; Z88.8 Allergy status to other drugs, medicaments and biological substances; Z79.899 Other long term (current) drug therapy; Z79.84 Long term (current) use of oral hypoglycemic drugs; Z79.890 Hormone replacement therapy; Z87.19 Personal history of other diseases of the digestive system; Z98.890 Other specified postprocedural states; Z79.51 Long term (current) use of inhaled steroids; K59.00 Constipation, unspecified
CPT/HCPCS: J2001; J3010; J2704; G0121

== ENCOUNTER 2022-07-02 19:27 | Observation (INO) | payer MEDICARE ==
[2022-07-02] MEDS ORDERED: SODIUM CHLORIDE 0.9% 1,000 ML IV STA (20:05)
[2022-07-02 20:12] LABS: Basophils # (A) 0.1 k/uL (0-0.2); Basophils % (A) 3 %; Eosinophils # (A) 0.2 k/uL (0-0.7); Eosinophils % (A) 3 %; HCT 49.3 % (39.0-53.0); HGB 16.9 gm/dL (13.0-17.5); Lymphocytes # (A) 1.1 k/uL (1.0-4.8); Lymphocytes % (A) 20 %; MCH 33.9 pg (25.0-35.0); MCHC 34.4 g/dL (31.0-37.0); MCV 98.8 fL (80.0-100.0); Mean Platelet Volume 8.2; Monocytes # (A) 0.4 k/uL (0-1.0); Monocytes % (A) 7 %; Neutrophils # (A) 3.7 k/uL (1.3-7.7); Neutrophils % (A) 66 %; Platelet Count 164 k/uL (150-450); RBC 4.99 m/uL (4.30-5.90); RDW 13.5 % (11.5-15.5); WBC 5.6 k/uL (3.8-10.6)
[2022-07-02 20:22] LABS: ALT 17 U/L (4-49); AST 32 U/L (17-59); African American GFR (CKD) >90 (>60 ml/min/1.73 sqM); Albumin 4.2 g/dL (3.5-5.0); Alkaline Phosphatase 79 U/L (38-126); Anion Gap 9 mmol/L; Blood Urea Nitrogen 14 mg/dL (9-20); Calcium 8.7 mg/dL (8.4-10.2); Carbon Dioxide 27 mmol/L (22-30); Chloride 107 mmol/L (98-107); Glucose 91 mg/dL (74-99); Non-African American GFR(CKD) 86 (>60 ml/min/1.73 sqM); Potassium 4.5 mmol/L (3.5-5.1); Sodium 143 mmol/L (137-145); Total Bilirubin 0.8 mg/dL (0.2-1.3); Total Protein 6.4 g/dL (6.3-8.2)
[2022-07-02] MEDS ORDERED: NALOXONE 0.4 MG/ML 1 ML VIAL IV PRN (22:23)
[2022-07-02] MEDS ORDERED: SODIUM CHLORIDE 0.9% 1,000 ML IV SCH (22:30)
--- NOTE | 2022-07-03 00:22 | ED ---
Overdose HPI - General Chief Complaint: Overdose Stated Complaint: Accidental Overdose Time Seen by Provider: 07/02/22 19:55 Source: patient, EMS Mode of arrival: EMS Limitations: no limitations - History of Present Illness Initial Comments: She is a 71-year-old male who presents to the emergency department with a chief complaint of accidental overdose. Patient states he accidentally took 3 of his verapamil pills instead of one tonight. Patient 720 mg total instead of 240 mg at about 6:15 PM. Patient is asymptomatic. He denies lightheadedness, di zziness, palpitations, chest pain, shortness of breath. - Related Data Home Medications Medication Instructions Recorded Confirmed ALPRAZolam [Xanax] 2 mg PO HS 04/22/18 03/17/20 Cetirizine HCl 10 mg PO DAILY 04/22/18 03/12/20 Famotidine [Pepcid] 40 mg PO DAILY 04/22/18 03/12/20 Furosemide [Lasix] 40 mg PO DAILY 04/22/18 03/12/20 Levothyroxine Sodium [Synthroid] 200 mcg PO DAILY 04/22/18 03/12/20 Lisinopril-Hctz 10-12.5 mg 1 tab PO DAILY 04/22/18 03/12/20 [Zestoretic 10-12.5] Montelukast [Singulair] 10 mg PO DAILY 04/22/18 03/12/20 Simvastatin [Zocor] 20 mg PO DAILY 04/22/18 03/12/20 Verapamil HCl [Verapamil ER] 240 mg PO 1800 04/22/18 03/12/20 allopurinoL [Zyloprim] 300 mg PO BID PRN 04/22/18 03/12/20 metFORMIN HCL [Glucophage] 500 mg PO BID 04/22/18 03/12/20 Albuterol Inhaler [Ventolin Hfa 1 puff INHALATION DAILY PRN 03/12/20 03/12/20 Inhaler] Beclomethasone Dip 80 Mcg/Puff 2 puff INHALATION HS 03/12/20 03/12/20 [Qvar 80 mcg] Colchicine 0.6 mg PO DIRECTED PRN 03/12/20 03/12/20 Testosterone Cypionate 200 mg IM Q14D 03/12/20 03/12/20 [Depo-Testosterone] Tiotropium 18 Mcg/Puff [Spiriva] 2 puff INHALATION HS 03/12/20 03/12/20 Previous Rx's Medication Instructions Recorded Artificial Tears-Hypromellose 2 drops BOTH EYES QID PRN bottle 04/24/18 [Artificial Tear Drops] Multivitamins, Thera [Multivitamin 1 tab PO DAILY #30 tablet 04/24/18 (formulary)] Allergies Allergy/AdvReac Type Severity Reaction Status Date / Time epinephrine Allergy Anaphylaxis Verified 03/17/20 07:38 Review of Systems ROS Statement: Those systems with pertinent positive or pertinent negative responses have been documented in the HPI. ROS Other: All systems not noted in ROS Statement are negative. Past Medical History Past Medical History: Atrial Flutter, Asthma, COPD, Diabetes Mellitus, Hyperlipidemia, Hypertension, Thyroid Disorder Additional Past Medical History / Comment(s): neuropathy,gout History of Any Multi-Drug Resistant Organisms: None Reported Past Surgical History: Hernia Repair, Joint Replacement, Orthopedic Surgery, Tonsillectomy Additional Past Surgical History / Comment(s): bilateral carpal tunnel repair, b ilateral hip joints replaced, rt foot surgery Past Anesthesia/Blood Transfusion Reactions: No Reported Reaction Past Psychological History: No Psychological Hx Reported Smoking Status: Former smoker - Past Family History Father Family Medical History: Congestive Heart Failure (CHF), Myocardial Infarction ([place]) Additional Family Medical History / Comment(s): multiple bilateral DVTs due to clotted "aorta" per patient Mother Family Medical History: Cancer Additional Family Medical History / Comment(s): breast/uterine/nasal CA General Exam Limitations: no limitations General appearance: alert, in no apparent distress Head exam: Present: atraumatic, normocephalic, normal inspection Eye exam: Present: normal appearance, PERRL, EOMI. Absent: scleral icterus, conjunctival injection, periorbital swelling Respiratory exam: Present: normal lung sounds bilaterally. Absent: respiratory distress, wheezes, rales, rhonchi, stridor Cardiovascular Exam: Present: regular rate, normal rhythm, normal heart sounds. Absent: systolic murmur, diastolic murmur, rubs, gallop, clicks GI/Abdominal exam: Present: soft, normal bowel sounds. Absent: distended, tenderness, guarding, rebound, rigid Extremities exam: Present: normal capillary refill Neurological exam: Present: alert, oriented X3, CN II-XII intact Psychiatric exam: Present: normal affect, normal mood Skin exam: Present: warm, dry, intact, normal color. Absent: rash Course Vital Signs 07/02/22 07/02/22 07/02/22 19:29 20:02 21:00 Temperature 97.4 F L Pulse Rate 80 62 Respiratory 18 18 Rate Blood Pressure 137/97 151/87 O2 Sat by Pulse 96 96 Oximetry 07/02/22 07/02/22 22:12 23:39 Temperature Pulse Rate 61 Respiratory 18 Rate Blood Pressure 149/89 142/75 O2 Sat by Pulse 98 Oximetry Medical Decision Making - Medical Decision Making This is a 71-year-old male presenting with accidental verapamil overdose. Patient well-appearing and asymptomatic. Blood pressure stable at 137/97. Pulse 80. I did speak with poison control over the phone who recommended close observation of vital signs and observation for 24 hours. EKG obtained and interpreted by me which shows sinus rhythm without ST segment or T-wave abnormality. Laboratory studies obtained. CBC and CMP within normal limits Patient given saline bolus. Blood pressure and pulse remained stable throughout stay. Case discussed with Dr. Noriega who accepted admission. Patient admitted for observation in stable condition. Dr. Higginbotham is my attending. - Lab Data Result diagrams: 07/02/22 19:59 07/02/22 19:59 Lab Results 07/02/22 07/02/22 Range/Units 19:59 19:59 WBC 5.6 (3.8-10.6) k/uL RBC 4.99 (4.30-5.90) m/uL Hgb 16.9 (13.0-17.5) gm/dL Hct 49.3 (39.0-53.0) % MCV 98.8 (80.0-100.0) fL MCH 33.9 (25.0-35.0) pg MCHC 34.4 (31.0-37.0) g/dL RDW 13.5 (11.5-15.5) % Plt Count 164 (150-450) k/uL MPV 8.2 Neutrophils % 66 % Lymphocytes % 20 % Monocytes % 7 % Eosinophils % 3 % Basophils % 3 % Neutrophils # 3.7 (1.3-7.7) k/uL Lymphocytes # 1.1 (1.0-4.8) k/uL Monocytes # 0.4 (0-1.0) k/uL Eosinophils # 0.2 (0-0.7) k/uL Basophils # 0.1 (0-0.2) k/uL Sodium 143 (137-145) mmol/L Potassium 4.5 (3.5-5.1) mmol/L Chloride 107 (98-107) mmol/L Carbon Dioxide 27 (22-30) mmol/L Anion Gap 9 mmol/L BUN 14 (9-20) mg/dL Creatinine 0.90 (0.66-1.25) mg/dL Est GFR (CKD-EPI)AfAm >90 (>60 ml/min/1.73 sqM) Est GFR (CKD-EPI)NonAf 86 (>60 ml/min/1.73 sqM) Glucose 91 (74-99) mg/dL Calcium 8.7 (8.4-10.2) mg/dL Total Bilirubin 0.8 (0.2-1.3) mg/dL AST 32 (17-59) U/L ALT 17 (4-49) U/L Alkaline Phosphatase 79 (38-126) U/L Total Protein 6.4 (6.3-8.2) g/dL Albumin 4.2 (3.5-5.0) g/dL - EKG Data EKG Comments: EKG obtained at 20:24, interpreted by me Sinus rhythm, no ST segment T-wave abnormality Ventricular rate 69 [place] interval 157 QRS duration 98 QTc 384 Disposition Clinical Impression: Accidental drug overdose Disposition: ADMITTED IP TO THIS [facility] Condition: Stable Referrals: Magali Almaraz MD [Primary Care Provider] - 1-2 days
--- NOTE | 2022-07-03 02:55 | P.HPIM ---
History of Present Illness H&P Date: 07/02/22 The patient is a 71-year-old male with a PMH of A. fib on aspirin, hypertension, hyperlipidemia, hypothyroidism, and type II DM who presented to the emergency room after an unintentional verapamil overdose. The patient reports that he was preparing to take his nightly medications as well as preparing him for the next 2 days when he inadvertently took 3 tablets of his verapamil 240 mg ER, as oppos ed to a single tablet. Immediately became concerned and decided to come to the emergency room. The case was discussed by the ED provider with poison control who recommended overnight monitoring for possible bradycardia or hypotension. The patient reports feeling at his baseline at the time of interview and denied experiencing any symptoms or complaints. He states that he has not yet developed any symptoms since taking the medication. Denied experiencing chest discomfort, shortness of breath, dizziness. EKG in the emergency room revealed sinus rhythm with sinus arrhythmia at 69 bpm with left axis deviation. Laboratory evaluation was unremarkable. Review of systems: Pertinent positives and negatives as discussed in HPI, a complete review of systems was performed and all other systems are negative. Physical examination: General: non toxic, no distress, appears at stated age, overweight Derm: no unusual rashes/lesions, warm Head: atraumatic, normocephalic, symmetric Eyes: EOMI, no lid lag, anicteric sclera, pupils equal round reactive to light ENT: Nose and ears atraumatic Neck: No cervical lymphadenopathy, trachea midline, supple Mouth: no lip lesion, mucus membranes moist Cardiovascular: S1S2 reg, no murmur, positive dorsalis pedis pulse bilateral, no edema Lungs: CTA bilateral, no rhonchi, no rales, no accessory muscle use Abdominal: soft, nontender to palpation, no guarding Ext: muscle strength 5 out of 5 in all 4 extremities grossly, no gross muscle atrophy, no contractures, Neuro: CN II-XI grossly intact, no gross focal neuro deficits Psych: Alert, oriented, appropriate affect Assessment/plan Unintentional verapamil overdose -Cardiac monitoring Chronic conditions: Type II DM, hypertension, hyperlipidemia, hypothyroidism, A. fib -Continue the home meds DVT prophylaxis -Heparin subcu The patient is admitted with an anticipated less than 2 midnight stay for evaluation of verapamil overdose CODE STATUS: Full Code Discussed with: Patient Anticipated discharge date: in am Anticipated discharge place: Home Past Medical History Past Medical History: Atrial Flutter, Asthma, COPD, Diabetes Mellitus, Hyperlipidemia, Hypertension, Thyroid Disorder Additional Past Medical History / Comment(s): neuropathy,gout History of Any Multi-Drug Resistant Organisms: None Reported Past Surgical History: Hernia Repair, Joint Replacement, Orthopedic Surgery, Tonsillectomy Additional Past Surgical History / Comment(s): bilateral carpal tunnel repair, bilateral hip joints replaced, rt foot surgery Past Anesthesia/Blood Transfusion Reactions: No Reported Reaction Past Psychological History: No Psychological Hx Reported Smoking Status: Former smoker - Past Family History Father Family Medical History: Congestive Heart Failure (CHF), Myocardial Infarction ([place]) Additional Family Medical History / Comment(s): multiple bilateral DVTs due to clotted "aorta" per patient Mother Family Medical History: Cancer Additional Family Medical History / Comment(s): breast/uterine/nasal CA Medications and Allergies Home Medications Medication Instructions Recorded Confirmed Type ALPRAZolam [Xanax] 2 mg PO HS 04/22/18 03/17/20 History Cetirizine HCl 10 mg PO DAILY 04/22/18 03/12/20 History Famotidine [Pepcid] 40 mg PO DAILY 04/22/18 03/12/20 History Furosemide [Lasix] 40 mg PO DAILY 04/22/18 03/12/20 History Levothyroxine Sodium [Synthroid] 200 mcg PO DAILY 04/22/18 03/12/20 History Lisinopril-Hctz 10-12.5 mg 1 tab PO DAILY 04/22/18 03/12/20 History [Zestoretic 10-12.5] Montelukast [Singulair] 10 mg PO DAILY 04/22/18 03/12/20 History Simvastatin [Zocor] 20 mg PO DAILY 04/22/18 03/12/20 History Verapamil HCl [Verapamil ER] 240 mg PO 1800 04/22/18 03/12/20 History allopurinoL [Zyloprim] 300 mg PO BID PRN 04/22/18 03/12/20 History metFORMIN HCL [Glucophage] 500 mg PO BID 04/22/18 03/12/20 History Artificial Tears-Hypromellose 2 drops BOTH EYES QID PRN bottle 04/24/18 03/12/20 Rx [Artificial Tear Drops] Multivitamins, Thera [Multivitamin 1 tab PO DAILY #30 tablet 04/24/18 03/12/20 Rx (formulary)] Albuterol Inhaler [Ventolin Hfa 1 puff INHALATION DAILY PRN 03/12/20 03/12/20 History Inhaler] Beclomethasone Dip 80 Mcg/Puff 2 puff INHALATION HS 03/12/20 03/12/20 History [Qvar 80 mcg] Colchicine 0.6 mg PO DIRECTED PRN 03/12/20 03/12/20 History Testosterone Cypionate 200 mg IM Q14D 03/12/20 03/12/20 History [Depo-Testosterone] Tiotropium 18 Mcg/Puff [Spiriva] 2 puff INHALATION HS 03/12/20 03/12/20 History Allergies Allergy/AdvReac Type Severity Reaction Status Date / Time epinephrine Allergy Anaphylaxis Verified 03/17/20 07:38 Physical Exam Vitals: Vital Signs Temp Pulse Resp BP Pulse Ox 07/02/22 23:39 61 18 142/75 98 07/02/22 22:12 149/89 07/02/22 21:00 62 18 151/87 96 07/02/22 20:02 137/97 07/02/22 19:29 97.4 F L 80 18 96 Intake and Output 07/02/22 07/02/22 07/03/22 14:59 22:59 06:59 Other: Weight 92.986 kg Results CBC & Chem 7: 07/02/22 19:59 07/02/22 19:59
[2022-07-03 08:33] VITALS: BP 144/71; PULSE 65; RESP 16; TEMP 96.5
--- NOTE | 2022-07-03 11:47 | P.DS ---
Providers Date of admission: 07/03/22 00:22 Expected date of discharge: 07/03/22 Attending physician: Greyson Noriega MD Primary care physician: Magali Almaraz Hospital Course: Discharge Diagnosis: Unintentional verapamil overdose, poison control was contacted recommended overnight monitoring to observe for any signs of hypotension and/or bradycardia. Patient stable with no noted side effects of unintentional medication overdose and denied experiencing any symptoms. Patient medically stable for discharge home and was instructed to resume home medications as previously prescribed with no medication changes during this admission. Chronic conditions include: Paroxysmal atrial fibrillation Hypertension Hyperlipidemia Hypothyroidism Type II [id number] diabetes mellitus Hospital Course: The patient is a very pleasant 71-year-old male with a past medical history of paroxysmal atrial fibrillation on only aspirin, hypertension, hyperlipidemia, hypothyroidism, and type II [id number] diabetes mellitus. He presented to the emergency department yesterday evening due to an unintentional verapamil overdose. Patient was preparing his nightly medications in his pillbox for the next few days and he mistakenly took 3 verapamil tablets (resullting in him inadvertently taking 720 mg instead of his prescribed 240 mg). Patient reports taking these medications around 6:15 PM and as soon as he realized he had done so he became very concerned so he came to the emergency department for evaluation. Patient denied experiencing any symptoms including headache, lightheadedness, dizziness, chest pain, palpitations, shortness of breath, or experiencing any numbness/tingling/weakness in his extremities. Upon arrival to the emergency department, poison control was contacted and reportedly recommended overnight monitoring to monitor for any signs of bradycardia or hypotension. Initial vital signs stable with heart rate of 80 and blood pressure was 137/97. EKG was completed showing sinus rhythm with sinus arrhythmia at 69 bpm with no noted T-wave or ST abnormalities showing no signs of acute ischemia when reviewed by me. Upon review of labs, CBC and CMP were noted to be unremarkable. Patient was admitted under our services to observation unit for overnight continuous cardiac monitoring and close monitoring of vital signs. It has been approximately 17 hours since patient took accidental dose of verapamil and he continues to deny development of any side effects or symptoms including dizziness, lightheadedness, chest pain, palpitations, shortness of breath, weakness, or experiencing any numbness/tingling in his extremities. Patient ambulating in room with a steady gait unassisted and requesting discharge home stating he feels great and needs to get home to take care of his and their horses. He had one episode of asymptomatic bradycardia overnight in which heart rate dropped only to 59 bpm, otherwise vital signs have remained unremarkable. Currently blood pressure 144/71 and heart rate of 65. A repeat EKG was completed to ensure no changes and was personally reviewed showing again sinus rhythm with sinus arrhythmia at 71 bpm with no noted T-wave or ST abnormalities showing no signs of acute ischemia. Patient is medically stable for discharge and is being discharged home at this time. He was instructed that he may resume his home medications as previously prescribed with no medication changes made during this admission. Patient to follow-up with his primary care doctor as needed. Physical examination: Patient seen and examined at bedside. General: non toxic, no distress, appears at stated age Derm: warm, dry Head: atraumatic, normocephalic, symmetric Eyes: EOMI, no lid lag, anicteric sclera Mouth: no lip lesion, mucus membranes moist Cardiovascular: S1S2 reg, no murmur, positive posterior tibial pulse bilateral, Lungs: CTA bilateral, no rhonchi, no rales , no accessory muscle use Abdominal: soft, nontender to palpation, no guarding, no appreciable organomegaly Ext: no gross muscle atrophy, no edema, no contractures Neuro: CN II-XI grossly intact, no focal neuro deficits Psych: Alert, oriented, appropriate affect A total of 38 minutes of time were spent preparing this complex discharge summary. Pt was discharged on 07/03/22 10:56 AM Maykel Cristobal NP rendered care for this patient independently, reviewed the findings and plan as documented in the note above. I did not physically speak with or examine the patient on this date. Patient Condition at Discharge: Stable Plan - Discharge Summary New Discharge Prescriptions: Continue Verapamil HCl [Verapamil ER] 240 mg PO BID allopurinoL [Zyloprim] 300 mg PO DAILY Montelukast [Singulair] 10 mg PO DAILY Simvastatin [Zocor] 20 mg PO DAILY Levothyroxine Sodium [Synthroid] 200 mcg PO SUMOTUWETHFR Famotidine [Pepcid] 40 mg PO DAILY ALPRAZolam [Xanax] 2 mg PO HS Testosterone Cypionate [Depo-Testosterone] 200 mg IM Q21D Tiotropium 18 Mcg/Puff [Spiriva] 2 puff INHALATION HS Albuterol Inhaler [Ventolin Hfa Inhaler] 2 puff INHALATION RT-Q6H PRN PRN Reason: Shortness Of Breath No Action metFORMIN HCL ER [Glucophage XR] 250 mg PO BID polyethylene glycoL 3350 [Miralax] 17 gm PO BID Ketoconazole 2% Shampoo [Nizoral] 1 applic TOPICAL Q48H lisinopriL 40 mg PO DAILY Docusate [Colace] 100 mg PO BID Fluticasone Nasal [place] [Flonase Nasal [place]] 1 spray EA NOSTRIL DAILY PRN PRN Reason: Allergy Symptoms Psyllium Husk [Fiber Capsule] 0.8 gm PO BID Discharge Medication List ALPRAZolam [Xanax] 2 mg PO HS 04/22/18 [History] Famotidine [Pepcid] 40 mg PO DAILY 04/22/18 [History] Levothyroxine Sodium [Synthroid] 200 mcg PO SUMOTUWETHFR 04/22/18 [History] Montelukast [Singulair] 10 mg PO DAILY 04/22/18 [History] Simvastatin [Zocor] 20 mg PO DAILY 04/22/18 [History] Verapamil HCl [Verapamil ER] 240 mg PO BID 04/22/18 [History] allopurinoL [Zyloprim] 300 mg PO DAILY 04/22/18 [History] Albuterol Inhaler [Ventolin Hfa Inhaler] 2 puff INHALATION RT-Q6H PRN 03/12/20 [History] Testosterone Cypionate [Depo-Testosterone] 200 mg IM Q21D 03/12/20 [History] Tiotropium 18 Mcg/Puff [Spiriva] 2 puff INHALATION HS 03/12/20 [History] Docusate [Colace] 100 mg PO BID 07/03/22 [History] Fluticasone Nasal [place] [Flonase Nasal [place]] 1 spray EA NOSTRIL DAILY PRN 07/03/22 [History] Ketoconazole 2% Shampoo [Nizoral] 1 applic TOPICAL Q48H 07/03/22 [History] Psyllium Husk [Fiber Capsule] 0.8 gm PO BID 07/03/22 [History] lisinopriL 40 mg PO DAILY 07/03/22 [History] metFORMIN HCL ER [Glucophage XR] 250 mg PO BID 07/03/22 [History] polyethylene glycoL 3350 [Miralax] 17 gm PO BID 07/03/22 [History] Follow up Appointment(s)/Referral(s): Magali Almaraz MD [Primary Care Provider] - 1-2 days Patient Instructions/Handouts: Verapamil (By mouth) Activity/Diet/Wound Care/Special Instructions: Activity: As tolerated. Take breaks as needed. Diet: Heart healthy and carb consistent diet. Avoid salts, or foods with hidden salts such as canned or boxed foods and frozen dinners. Extra salt makes your heart work harder and traps the fluid in your body for longer. Special Instructions: You may resume all of your medications as previously prescribed and remember to keep all of your doctor's appointments and follow-up as needed. Thank you for allowing us to participate in your care, it was truly a pleasure having you for our patient!!! Discharge Disposition: HOME SELF-CARE
== END 2022-07-03 12:02 | disposition home or self-care (01) ==
LOC: EC 19:27 → 6NMEDSUR 07-03 00:22
PROVIDERS: ADMIT Internal Medicine; ATTEND Internal Medicine
DX: T46.1X1A Poisoning by calcium-channel blockers, accidental (unintentional), initial encounter (principal); R00.1 Bradycardia, unspecified; I10 Essential (primary) hypertension; I48.0 Paroxysmal atrial fibrillation; E03.9 Hypothyroidism, unspecified; E78.5 Hyperlipidemia, unspecified; J44.9 Chronic obstructive pulmonary disease, unspecified; I48.92 Unspecified atrial flutter; E11.40 Type 2 diabetes mellitus with diabetic neuropathy, unspecified; M10.9 Gout, unspecified; Z96.643 Presence of artificial hip joint, bilateral; Z98.890 Other specified postprocedural states; Z87.891 Personal history of nicotine dependence; Z79.890 Hormone replacement therapy; Z79.899 Other long term (current) drug therapy; Z79.84 Long term (current) use of oral hypoglycemic drugs; Z79.51 Long term (current) use of inhaled steroids; Z88.8 Allergy status to other drugs, medicaments and biological substances; Z80.8 Family history of malignant neoplasm of other organs or systems; Z82.49 Family history of ischemic heart disease and other diseases of the circulatory system; Z80.3 Family history of malignant neoplasm of breast; Z80.49 Family history of malignant neoplasm of other genital organs
CPT/HCPCS: 96360; 96361 ×2; 99285; 36415; 93005; 80053; 85025; G0378

== ENCOUNTER → 2024-08-01 | Outpatient (CLI) | payer MEDICARE ==
[2024-08-01 13:10] VITALS: BP 117/74; PULSE 71; RESP 18; TEMP 97.6
--- NOTE | 2024-08-01 16:07 | P.PAINPG ---
PQRS Measure Charge Sheet Comment: HISTORY OF PRESENT ILLNESS: A 73 yr old male as a referral from [facility] presents today w severe and chronic LBP > 1 yr secondary to radiculopathy, spondylosis and facet arthropathy without myelopathy for evaluation. Pt states pain level is provoked at 8 /10 in intensity, constant, localized in the lumbar spine, predominantly axial, sharp in character w occasional shooting pain towards the R foot. Pain is provoked by sitting, bending, lifting. Pain is alleviated by physician guided home stretches daily since 2019, medications (Lyrica 150mg #60, Celebrex 200mg), repositioning and rest . Oswestry axial pain score at 34. PMH: OA, Atrial Flutter, Asthma, COPD, NIDDM II, Hyperlipidemia, HTN, H ypothyroidsim, Gout PSH: Colonoscopy (2019), Hernia Repair, BL CTR, BL Hip Replacement, R Foot Surgery, Tonsillectomy SH: Former tobacco user, No ETOH use, No illicit drug use FH: Fa- CHF, MS. Mo- Breast/ Uterine/ Nasal CA All: See list Meds: See list REVIEW OF ORGAN SYSTEMS: CONSTITUTIONAL: No fevers or chills. No recent weight loss. NEUROLOGICAL: + numbness and tingling along the distal extremities. No seizure disorders or headaches. MUSCULOSKELETAL: + pain PSYCHIATRIC: Denies current depression or suicidal thoughts. Physical Examinations : Constitutional : Cooperative , not in acute distress . Neurologic : Cranial nerve II to XII intact. No focal neurological deficits. Psychiatric : alert & oriented x 3. Matching mood & appropriate affect. Judgment & insight intact. Musculoskeletal : Cervical Spine Motor strength in the deltoid and biceps: Normal right side. Normal Left side Motor strength biceps and the wrist extensors: Normal right side . Normal left side Motor strength in the triceps muscle: Normal right side. Normal left side Deep tendon reflexes: Normal at the biceps. Normal at Brachioradialis. Normal at triceps Vertebral body tenderness to deep palpation over Cervical facet loading test: positive bilaterally Spurling test: positive bilaterally Neck distraction test: positive bilaterally Brianda sign: positive bilaterally Lumbar spine Motor strength lower extremities ,thigh and legs 5/5 Right side , 5/5 Left side Deep tendon reflexes : Normal Knee Jerk. Normal Ankle Jerk Vertebral body tenderness over L2 Green Test positive R> L L2-L3 Lumbar facet Loading Test: positive Right / positive Left Range of motion of the lumbar spine Flexion 30 degrees, extension 10 degrees Straight Leg Raise test: Left/ Right positive at degrees Mayra test: positive right / positive left. Severe tenderness over the Sacroiliac joint on the Right / Left sides Gaenslen test: positive bilaterally Seated flexion test: positive bilaterally. Sacral spine : Severe tenderness over the Sacroiliac joint: right side / left side Range of motion: Flexion of the lumbar spine <60 degrees Range of motion: Extension of the lumbar spine <20 degrees Gaenslen's Test positive Mayra test: positive right side / left side Thigh Thrust Test Sacral Thrust Test Imaging: MRI non contrast lumbar spine from 05/29/24 reviewed Assessment/ Plan : Lumbar radiculopathy Recommendation of AGUS L2-L3 #1 and medication management. Risks, benefits of procedure discussed and patient verbalized understanding. Admits to anti- coagulant use or medical history of diabetes. Protocol for discontinuation/ continuation of medications jere procedure discussed. Percocet 7.5/325gm #60 w 1 RF. Use, side effects, adverse reactions, safe storage discussed. Opiate/ narcotic agreement signed 08/01/24. All questions answered. I have spent greater than 30 minutes on patient care today. Dr Strange was available by phone for the evaluation of this patient. The time was used to review the medical records including relevant urine studies and Prescription history (MAPs), review of the available imaging, evaluation and examination of the patient, coordination of care with the medical staff and if applicable referring physicians, as well as creation of the medical record PQRS Narrative: Smoking Status Former smoker Home Medications: Ambulatory Orders ALPRAZolam [Xanax] 2 mg PO HS 04/22/18 Famotidine [Pepcid] 40 mg PO DAILY 04/22/18 Levothyroxine Sodium [Synthroid] 200 mcg PO SUMOTUWETHFR 04/22/18 Montelukast [Singulair] 10 mg PO DAILY 04/22/18 Simvastatin [Zocor] 20 mg PO DAILY 04/22/18 Verapamil HCl [Calan Sr] 240 mg PO BID 04/22/18 allopurinoL [Zyloprim] 300 mg PO DAILY 04/22/18 Albuterol Inhaler [Ventolin Hfa Inhaler] 2 puff INHALATION RT-Q6H PRN 03/12/20 Testosterone Cypionate [Depo-Testosterone] 200 mg IM Q21D 03/12/20 Tiotropium 18 Mcg/Puff [Spiriva] 2 puff INHALATION HS 03/12/20 Docusate [Colace] 100 mg PO BID 07/03/22 Fluticasone Nasal [place] [Flonase Nasal [place]] 1 spray EA NOSTRIL DAILY PRN 07/03/22 Ketoconazole 2% Shampoo [Nizoral] 1 applic TOPICAL Q48H 07/03/22 Psyllium Husk [Fiber Capsule] 0.8 gm PO BID 07/03/22 lisinopriL 40 mg PO DAILY 07/03/22 metFORMIN HCL ER [Glucophage XR] 250 mg PO BID 07/03/22 polyethylene glycoL 3350 [Miralax] 17 gm PO BID 07/03/22 oxyCODONE HCL/ACETAMINOPHEN [Percocet 7.5-325 mg Tablet] 1 each PO BID PRN 30 Days #60 tab 08/01/24 oxyCODONE HCL/ACETAMINOPHEN [Percocet 7.5-325 mg] 1 tab PO BID PRN 30 Days #60 tab 08/01/24 Controlled Substance Measures - Controlled Substance Measures Is patient prescribed a controlled substance at discharge?: Yes When asked, does pt state using other controlled substances?: Yes If prescribed controlled substance>3 days was MAPS reviewed?: Yes If Rx opioid, was Start Talking consent form obtained?: Yes Was information provided regarding opioid addiction?: Yes
== END ==
LOC: PNWHC3 12:32
PROVIDERS: ATTEND Specialist
DX: M54.16 Radiculopathy, lumbar region (principal); Z87.891 Personal history of nicotine dependence; Z88.8 Allergy status to other drugs, medicaments and biological substances
CPT/HCPCS: 99202

== ENCOUNTER 2024-08-17 12:38 | Day surgery (SDC) | payer MEDICARE ==
[2024-08-17 13:11] VITALS: RESP 18; TEMP 97.6
[2024-08-17 13:19] LABS: Glucose,Whole Blood 111 mg/dL (70-110)
[2024-08-17] MEDS ORDERED: IOPAMIDOL M200 10 ML VIAL ONE (14:07)
[2024-08-17] MEDS ORDERED: methylPREDNISolone ACETATE 80 MG/ML 1 ML VIAL ONE (14:07)
--- NOTE | 2024-08-17 14:27 | P.PCN ---
Date of Procedure: 08/17/24 Procedure(s) Performed: PREOPERATIVE DIAGNOSIS: 1- Lumbar Degenerative Disc Diseases 2-Lumbar spondylosis with Facet arthropathy without myelopathy. 3-lumbar spinal stenosis. 4-lumbar radiculopathy POSTOPERATIVE DIAGNOSIS: 1-lumbar degenerative disc disease. 2-lumbar spondylosis with facet arthropathy without myelopathy. 3-lumbar spinal stenosis. 4-lumbar radiculopathy PROCEDURE 1. Lumbar epidural steroid injection under fluoroscopic guidance at the L2-3 level. (Fluoroscopy imaging was available in radiology department) 2. Lumbar epidurogram. ANESTHESIA: Lidocaine 1% 3 and then only. EBL: Minimal PROCEDURE INDICATION: The patient with low back pain and radiculitis symptoms unresponsive to conservative treatment. Fluoroscopy was used to optimize visualization of the needle placement and to maximize safety. PROCEDURE DESCRIPTION / TECHNIQUE: The patient was seen and identified in the preoperative area. Risks, benefits, complications including but not limited to infections ,bleeding ,allergic reaction to the medications ,nerve damage and not complete pain releife , and alternatives were discussed with the patient. The patient agreed to proceed with the procedure and signed the consent, and vital signs were stable. Patient was taken to the OR and time out was completed. The patient was placed in the prone position on procedure table and a pillow was placed under the abdomen to reduce lumbar lordosis. The lumbosacral area was prepped and draped in the usual sterile fashion.ere closely monitored during the procedure. Vital signs was monitered during the entire procedure. Using anterior-posterior fluoroscopy, the L2-3 interlaminar space was identified and the skin over this site was marked and then infiltrated with 1% lidocaine subcutaneously. Subsequently, a 20-gauge Tuohy epidural needle was inserted and advanced toward the epidural space using the ``Loss of resistance technique and guided by AP and lateral fluoroscopy. The correct needle position in the epidural space was verified with the injection of 2 mL of the water soluble contrast dye Isovue 200 contrast and observing an excellent epidurogram with the epidural spread of the dye, after negative aspiration for blood and CSF and in the absence of paresthesias. Again after negative aspiration, a 5 ml mixture containing 60 mg of Depo-medrol ( Preservetive Free ), and 2 ml of preservative free Normal Saline, and 2 ml of preservative free lidocaine 1% solution was injected and a washout of epidurogram was seen. Needle was withdrawn intact, skin was cleansed, and bandages were applied. COMPLICATIONS: None DISPOSITION / PLANS: The patient was placed in a supine position and transferred to the recovery area in a stable condition for observation. There was no evidence of lower extremity motor or sensory deficit after the procedure. Patient was discharged from the recovery room after meeting discharge criteria. Home discharge instructions were given to the patient by the staff. The patient was reexamined prior to discharge. The patient will schedule a follow up in the clinic in 2-4 weeks. Patient currently on Lyrica 150 mg twice a day and he reports that he is having some memory issues, feeling forgetful and difficulty to remember and focus, and he reported that the symptoms started since he used was started on Lyrica, for this reason I will start patient on new dose of Lyrica 50 mg 3 times daily dispense 90 with 1 refill, patient was instructed to stop taking the Lyrica 150 mg.
[2024-08-17 14:57] VITALS: BP 103/66; PULSE 68
--- NOTE | 2024-08-17 16:46 | FL ---
EXAMINATION TYPE: FL guided pain mgmt statistic DATE OF EXAM: 08/17/2024 FLUOROSCOPY STEROID INJECTION FL TIME- 2.8 SECONDS DAP- 0.74 MGY 1 image is submitted for lumbar epidural steroid injection. [facility], , 08/17/2024 4:43 PM
== END 2024-08-17 15:03 ==
LOC: ORPAIN 12:38
PROVIDERS: ATTEND Specialist
DX: M47.26 Other spondylosis with radiculopathy, lumbar region (principal); M48.061 Spinal stenosis, lumbar region without neurogenic claudication; M51.16 Intervertebral disc disorders with radiculopathy, lumbar region; Z79.899 Other long term (current) drug therapy
CPT/HCPCS: 62323; Q9966; J1010

== ENCOUNTER → 2024-10-10 | Outpatient (CLI) | payer MEDICARE ==
[2024-10-10 12:49] VITALS: BP 96/64; PULSE 71; RESP 16; TEMP 97.3
--- NOTE | 2024-10-10 14:59 | P.PAINPG ---
PQRS Measure Charge Sheet Comment: HISTORY OF PRESENT ILLNESS: A 74 yr old male w at side presents today w severe and chronic LBP > 1 yr secondary to radiculopathy, spondylosis and facet arthropathy without myelopathy for evaluation s/p AGUS L2-L3 #1. Pt states he experienced 85% pain relief x 6 wks s/p procedure. Pt states pain level is provoked at 6 /10 in intensity, intermittent, localized in the lumbar spine, predominantly axial, sharp in character w occasional shooting pain towards the R hip. Pain is provoked by sitting, bending, lifting. Pain is alleviated by physician guided home stretches daily since 2019, medications, repositioning and rest . Interventional procedures include AGUS L2-L3 #1 Medications include Lyrica 150mg #60, Celebrex 200mg REVIEW OF ORGAN SYSTEMS: CONSTITUTIONAL: No fevers or chills. No recent weight loss. NEUROLOGICAL: + numbness and tingling along the distal extremities. No seizure disorders or headaches. MUSCULOSKELETAL: + pain PSYCHIATRIC: Denies current depression or suicidal thoughts. Physical Examinations : Constitutional : Cooperative , not in acute distress . Neurologic : Cranial nerve II to XII intact. No focal neurological deficits. Psychiatric : alert & oriented x 3. Matching mood & appropriate affect. Judgment & insight intact. Musculoskeletal : Cervical Spine Motor strength in the deltoid and biceps: Normal right side. Normal Left side Motor strength biceps and the wrist extensors: Normal right side . Normal left side Motor strength in the triceps muscle: Normal right side. Normal left side Deep tendon reflexes: Normal at the biceps. Normal at Brachioradialis. Normal at triceps Vertebral body tenderness to deep palpation over Cervical facet loading test: positive bilaterally Spurling test: positive bilaterally Neck distraction test: positive bilaterally Brianda sign: positive bilaterally Lumbar spine Motor strength lower extremities ,thigh and legs 5/5 Right side , 5/5 Left side Deep tendon reflexes : Normal Knee Jerk. Normal Ankle Jerk Vertebral body tenderness over L2 Green Test positive R> L L2-L3 Lumbar facet Loading Test: positive Right / positive Left Range of motion of the lumbar spine Flexion 30 degrees, extension 10 degrees Straight Leg Raise test: Left/ Right positive at degrees Mayra test: positive right / positive left. Severe tenderness over the Sacroiliac joint on the Right / Left sides Gaenslen test: positive bilaterally Seated flexion test: positive bilaterally. Sacral spine : Severe tenderness over the Sacroiliac joint: right side / left side Range of motion: Flexion of the lumbar spine <60 degrees Range of motion: Extension of the lumbar spine <20 degrees Gaenslen's Test positive Mayra test: positive right side / left side Thigh Thrust Test Sacral Thrust Test Imaging: MRI non contrast lumbar spine from 05/29/24 reviewed Assessment/ Plan : L2-3 radiculopathy Recommendation of AGUS L2-L3 #2. Risks, benefits of procedure discussed and patient verbalized understanding. Admits to anti- coagulant use or medical history of diabetes. Protocol for discontinuation/ continuation of medications jere procedure discussed. No longer taking Percocet 7.5/325gm #60. Use, side effects, adverse reactions, safe storage discussed. Opiate/ narcotic agreement signed 08/01/24. All questions answered. I have spent greater than 30 minutes on patient care today. Dr Strange was available by phone for the evaluation of this patient. The time was used to review the medical records including relevant urine studies and Prescription history (MAPs), review of the available imaging, evaluation and examination of the patient, coordination of care with the medical staff and if applicable referring physicians, as well as creation of the medical record PQRS Narrative: Smoking Status Former smoker Narcotic Agreement Date Signed 08/01/24 Hx Alcohol Use (MH) No Home Medications: Ambulatory Orders Famotidine [Pepcid] 40 mg PO DAILY 04/22/18 Levothyroxine Sodium [Synthroid] 200 mcg PO SUMOTUWETHFR 04/22/18 Montelukast [Singulair] 10 mg PO HS 04/22/18 Simvastatin [Zocor] 20 mg PO HS 04/22/18 Verapamil HCl [Calan Sr] 240 mg PO BID 04/22/18 allopurinoL [Zyloprim] 300 mg PO DAILY 04/22/18 Albuterol Inhaler [Ventolin Hfa Inhaler] 2 puff INHALATION RT-Q6H PRN 03/12/20 Testosterone Cypionate [Depo-Testosterone] 200 mg IM Q21D 03/12/20 Tiotropium 18 Mcg/Puff [Spiriva] 2 puff INHALATION HS PRN 03/12/20 Docusate [Colace] 100 mg PO BID 07/03/22 Fluticasone Nasal [place] [Flonase Nasal [place]] 1 spray EA NOSTRIL DAILY PRN 07/03/22 lisinopriL 40 mg PO DAILY 07/03/22 polyethylene glycoL 3350 [Miralax] 17 gm PO BID 07/03/22 Aspirin [Adult Low Dose Aspirin EC] 81 mg PO DAILY 08/15/24 Celecoxib [CeleBREX] 200 mg PO DAILY 08/15/24 Pregabalin [Lyrica] 50 mg PO TID 30 Days #90 cap 08/20/24 Naloxone HCl [Narcan] 4 mg NASAL ONCE PRN 365 Days #1 each 09/12/24 Controlled Substance Measures - Controlled Substance Measures Is patient prescribed a controlled substance at discharge?: No
== END ==
LOC: PNWHC3 10:56
PROVIDERS: ATTEND Specialist
DX: M54.16 Radiculopathy, lumbar region (principal); E11.9 Type 2 diabetes mellitus without complications; Z88.8 Allergy status to other drugs, medicaments and biological substances; Z87.891 Personal history of nicotine dependence
CPT/HCPCS: 99211

== ENCOUNTER → 2024-10-25 | Day surgery (SDC) | payer MEDICARE ==
[2024-10-24 09:53] VITALS: BMI 28.5
[~2024-10-25] MED LIST changes: +IOPAMIDOL M300 15ML VIAL ONE; +methylPREDNISolone ACETATE 80 MG/ML 1 ML VIAL ONE
[2024-10-25 10:06] VITALS: TEMP 98
[2024-10-25 10:13] LABS: Glucose,Whole Blood 132 mg/dL (70-110)
[2024-10-25 11:06] VITALS: RESP 16
--- NOTE | 2024-10-25 11:10 | FL ---
EXAMINATION TYPE: FL guided pain mgmt statistic DATE OF EXAM: 10/25/2024 CLINICAL INDICATION: Male, 74 years old with history of LESI; PHH, pain TECHNIQUE: Fluoroscopy. COMPARISON: None. FINDINGS: Fluoroscopic guidance was provided during pain relief procedure performed by Dr. Cerda . A total of 13.2 seconds of fluoroscopic time was utilized during the procedure and one image was acqu ired. Image acquired shows needle localization in the lumbar spine. Degeneration changes of the visua lized joints. Total DAP: 0.27812 mGym2. IMPRESSION: As Above. [facility], , 10/25/2024 11:07 AM
--- NOTE | 2024-10-25 11:13 | P.PCN ---
Description of Procedure: PREOPERATIVE DIAGNOSIS: 1- Lumbar Degenerative Disc Diseases 2-Lumbar spondylosis with Facet arthropathy without myelopathy. 3-lumbar spinal stenosis POSTOPERATIVE DIAGNOSIS: 1-lumbar degenerative disc disease. 2-lumbar spondylosis with facet arthropathy without myelopathy. 3-lumbar spinal stenosis. PROCEDURE Injection of radio contrast material into L2-3 interspace, interpretation of epidurogram, injection of steroid at L2-3 epidural space under fluoroscopic guidance. ANESTHESIA: Lidocaine 1% subcutaneously. In OR continuous pulse ox, EKG, blood pressure and verbal communication was maintained with the patient. EBL: Minimal PROCEDURE INDICATION: Before the procedure were discussed with the patient detailed procedure, alternatives, complications including infection, bleeding, nerve damage, paralysis all of which could be permanent. Patient understands and all questions were answered. PROCEDURE DESCRIPTION : After getting consent, patient in OR in prone position. Back was prepped with chlorhexidine and draped in sterile fashion. After injecting 10 mL of 1% lidocaine subcutaneously, a 20-gauge Tuohy needle was introduced at L2-3 interspace with loss of resistance technique using a syringe filled with air. Negative CSF, negative blood, negative paresthesia. Needle position was confirmed with AP and lateral view of the fluoroscope. After repeat negative aspiration 2 mL of Omnipaque 200 water soluble contrast was injected. Contrast was noted in the epidural space. No contrast was noted into intrathecal or intravascular space. After repeat negative aspiration 6 mL solution was injected intermittently which consists of 5 mL of preservative-free normal saline mixed with 1 mL of 80 mg Depo-Medrol. Needle was withdrawn intact. Skin was cleansed and Band-Aids was applied. DISPOSITION / PLANS: The patient tolerated the procedure well. No complication. The patient was placed in a supine position and transferred to the recovery area in a stable condition for observation. There was no evidence of lower extremity motor or sensory deficit after the procedure. Patient was discharged from the recovery room after meeting discharge criteria. Home discharge instructions were given to the patient by the staff. The patient was reexamined prior to discharge. The patient will schedule a follow up in the clinic in 2-4 weeks.
[2024-10-25 11:18] VITALS: BP 124/74; PULSE 78
== END ==
LOC: ORPAIN 08:52
PROVIDERS: ATTEND Pain Medicine Interventional Pain Medicine
DX: M47.816 Spondylosis without myelopathy or radiculopathy, lumbar region (principal); M48.061 Spinal stenosis, lumbar region without neurogenic claudication; M51.369 Other intervertebral disc degeneration, lumbar region without mention of lumbar back pain or lower extremity pain; E11.9 Type 2 diabetes mellitus without complications; Z79.82 Long term (current) use of aspirin; Z79.1 Long term (current) use of non-steroidal anti-inflammatories (NSAID)
CPT/HCPCS: 62323; Q9967; J1010

== ENCOUNTER → 2024-11-19 | Outpatient (CLI) | payer MEDICARE ==
[2024-11-19 11:21] VITALS: BP 119/78; PULSE 78; RESP 16; TEMP 96.9
--- NOTE | 2024-11-19 16:38 | P.PAINPG ---
PQRS Measure Charge Sheet Comment: HISTORY OF PRESENT ILLNESS: A 74 yr old male w at side presents today w severe and chronic LBP > 1 yr secondary to radiculopathy, spondylosis and facet arthropathy without myelopathy for evaluation s/p AGUS L2-L3 #2. Pt states he experienced 95% pain relief x 3 wks s/p procedure. Pt states pain level is provoked at 2-5 /10 in intensity, intermittent, localized in the lumbar spine, predominantly axial, sharp in character w occasional shooting pain towards the R hip. Pain is provoked by sitting, bending, lifting. Pain is alleviated by physician guided home stretches daily since 2019, medications, repositioning and rest . Interventional procedures include AGUS L2-L3 x2 Medications include Lyrica 150mg #60, Celebrex 200mg REVIEW OF ORGAN SYSTEMS: CONSTITUTIONAL: No fevers or chills. No recent weight loss. NEUROLOGICAL: + numbness and tingling along the distal extremities. No seizure disorders or headaches. MUSCULOSKELETAL: + pain PSYCHIATRIC: Denies current depression or suicidal thoughts. Physical Examinations : Constitutional : Cooperative , not in acute distress . Neurologic : Cranial nerve II to XII intact. No focal neurological deficits. Psychiatric : alert & oriented x 3. Matching mood & appropriate affect. Judgment & insight intact. Musculoskeletal : Cervical Spine Motor strength in the deltoid and biceps: Normal right side. Normal Left side Motor strength biceps and the wrist extensors: Normal right side . Normal left side Motor strength in the triceps muscle: Normal right side. Normal left side Deep tendon reflexes: Normal at the biceps. Normal at Brachioradialis. Normal at triceps Vertebral body tenderness to deep palpation over Cervical facet loading test: positive b ilaterally Spurling test: positive bilaterally Neck distraction test: positive bilaterally Brianda sign: positive bilaterally Lumbar spine Motor strength lower extremities ,thigh and legs 5/5 Right side , 5/5 Left side Deep tendon reflexes : Normal Knee Jerk. Normal Ankle Jerk Vertebral body tenderness over L2 Green Test positive R> L L2-L3 Lumbar facet Loading Test: positive Right / positive Left Range of motion of the lumbar spine Flexion 30 degrees, extension 10 degrees Straight Leg Raise test: Left/ Right positive at degrees Mayra test: positive right / positive left. Severe tenderness over the Sacroiliac joint on the Right / Left sides Gaenslen test: positive bilaterally Seated flexion test: positive bilaterally. Sacral spine : Severe tenderness over the Sacroiliac joint: right side / left side Range of motion: Flexion of the lumbar spine <60 degrees Range of motion: Extension of the lumbar spine <20 degrees Gaenslen's Test positive Mayra test: positive right side / left side Thigh Thrust Test Sacral Thrust Test Imaging: MRI non contrast lumbar spine from 05/29/24 reviewed Assessment/ Plan : L2-3 radiculopathy Will manage residual pain and may RTC on an as-needed basis. All questions answered. I have spent greater than 30 minutes on patient care today. Dr Strange was available by phone for the evaluation of this patient. The time was used to review the medical records including relevant urine studies and Prescription history (MAPs), review of the available imaging, evaluation and examination of the patient, coordination of care with the medical staff and if applicable referring physicians, as well as creation of the medical record - Pain Location Left Lower Back Non-Pharmacological Interventions: Exercise, Home Exercise, Inactivity, Position/Reposition, Relaxation Technique, Sitting, Stretching Pharmacological Interventions: Epidural, PRN Medication PQRS Narrative: Smoking Status Former smoker Narcotic Agreement Date Signed 08/01/24 Hx Alcohol Use (MH) No Home Medications: Ambulatory Orders Famotidine [Pepcid] 40 mg PO DAILY 04/22/18 Levothyroxine Sodium [Synthroid] 200 mcg PO SUMOTUWETHFR 04/22/18 Montelukast [Singulair] 10 mg PO HS 04/22/18 Simvastatin [Zocor] 20 mg PO HS 04/22/18 Verapamil HCl [Calan Sr] 240 mg PO BID 04/22/18 allopurinoL [Zyloprim] 300 mg PO DAILY 04/22/18 Albuterol Inhaler [Ventolin Hfa Inhaler] 2 puff INHALATION RT-Q6H PRN 03/12/20 Testosterone Cypionate [Depo-Testosterone] 200 mg IM Q21D 03/12/20 Tiotropium 18 Mcg/Puff [Spiriva] 2 puff INHALATION HS PRN 03/12/20 Docusate [Colace] 100 mg PO BID 07/03/22 Fluticasone Nasal [place] [Flonase Nasal [place]] 1 spray EA NOSTRIL BID PRN 07/03/22 lisinopriL 10 mg PO QAM 07/03/22 polyethylene glycoL 3350 [Miralax] 17 gm PO BID 07/03/22 Aspirin [Adult Low Dose Aspirin EC] 81 mg PO DAILY 08/15/24 Celecoxib [CeleBREX] 200 mg PO DAILY 08/15/24 ALPRAZolam [Xanax] 2 mg PO HS 10/24/24 Pregabalin [Lyrica] 50 mg PO QAM PRN 10/24/24 Controlled Substance Measures - Controlled Substance Measures Is patient prescribed a controlled substance at discharge?: No
== END ==
LOC: PNWHC3 11:02
PROVIDERS: ATTEND Specialist
DX: M47.26 Other spondylosis with radiculopathy, lumbar region (principal); Z88.8 Allergy status to other drugs, medicaments and biological substances; Z87.891 Personal history of nicotine dependence